=== PATIENT | female | born 1985 | race Caucasian/White ===

== ENCOUNTER → 2020-03-07 11:15 | Outpatient (CLI) | payer OTHER, SELFPAY ==
--- NOTE | 2020-03-07 | DI.RAD.S_ITS ---
PROCEDURE: XR CERVICAL SPINE 2V OR 3V INDICATIONS: Cervicalgia TECHNIQUE: 3 view(s) of the cervical spine were acquired. COMPARISON: None. FINDINGS: Bones: No fractures or dislocations to the T2 level. The lateral masses of C1 appear intact on the odontoid view. No suspicious bony lesions. Straightening of cervical lordosis which may be due to patient positioning and/or concurrent muscle spasms. Soft tissues: No prevertebral soft tissue swelling. IMPRESSION: Cervical spine without acute fracture or significant degenerative change. Mild straightening of normal cervical lordosis likely related to positioning and/or concurrent muscle spasms. Dictated by: Jett Rincon M.D. on 03/07/2020 at 17:58 Approved by: Jett Rincon M.D. on 03/07/2020 at 17:59
[2020-03-07 12:17] LABS: Erythrocyte Sedimentation Rate 2 MM/HR (0-20)
[2020-03-07 13:53] LABS: Alanine Aminotransferase 23 IU/L (<35); Albumin 4.4 g/dL (3.5-5.0); Albumin Globulin Ratio 1.6 (1.0-2.8); Alkaline Phosphatase 69 U/L (38-126); Aspartate Aminotransferase 26 IU/L (14-36); Bilirubin Total 0.3 mg/dL (0.2-1.3); Blood Urea Nitrogen 10 mg/dL (7-17); Calcium 9.3 mg/dL (8.4-10.2); Carbon Dioxide 31 mmol/L (22-32); Chloride 103 mmol/L (98-107); Estimated Glomerular Filt Rate > 60.0 mL/min (>60); Globulin 2.7 g/dL (1.7-4.1); Glucose 84 mg/dL (70-100); HEMOLYSIS < 15 (0-50); Lactate Dehydrogenase 402 U/L (313-618); Potassium 4.5 mmol/L (3.4-5.1); Sodium 137 mmol/L (137-145); Total Protein 7.1 g/dL (6.3-8.2)
== END ==
PROVIDERS: Referring Provider Internal Medicine; Visit Provider Internal Medicine
DX: M54.2 Cervicalgia (principal); M89.8X9 Other specified disorders of bone, unspecified site
CPT/HCPCS: 36415; 72040; 80053; 83615; 85651

== ENCOUNTER → 2020-06-11 13:48 | Outpatient (CLI) | payer OTHER, SELFPAY ==
[2020-06-11 15:13] LABS: COVID19 -Nasal RAPID Negative (Negative)
== END ==
PROVIDERS: Visit Provider Physician Assistant
DX: Z11.59 Encounter for screening for other viral diseases (principal)
CPT/HCPCS: 87635

== ENCOUNTER → 2021-02-27 11:41 | Outpatient (CLI) | payer OTHER, SELFPAY ==
[2021-02-27 13:04] LABS: Add Manual Diff / Slide Review NO; Basophils Absolute Auto 0 /uL (0-100); Basophils Percent Auto 0.7 % (0-2); Eosinophils Absolute Auto 0 /uL (0-450); Hematocrit 42.7 % (36-46); Hemoglobin 14.2 g/dL (12.0-16.0); Lymphocytes Absolute Auto 1000 /uL (1100-4500); Lymphocytes Percent Auto 22.7 % (25-40); Mean Corpuscular HGB Conc 33.3 % (30-36); Mean Corpuscular Hemoglobin 28.6 PG (26-34); Mean Corpuscular Volume 85.9 fL (80-100); Monocytes Absolute Auto 400 /uL (0-900); Monocytes Percent Auto 8.2 % (3-14); Neutrophils Absolute Auto 2900 /uL (1500-7000); Neutrophils Percent Auto 67.4 % (50-75); Platelet Count 167 X10^3/uL (150-400); Red Blood Cell Count 4.97 X10^6/uL (4.0-5.2); Red Cell Distribution Width 12.9 % (11.6-14.8); White Blood Cell Count 4.3 X10^3/uL (4.5-11.0)
[2021-02-27 13:34] LABS: Alanine Aminotransferase 21 IU/L (<35); Albumin 4.1 g/dL (3.5-5.0); Albumin Globulin Ratio 1.4 (1.0-2.8); Alkaline Phosphatase 79 U/L (38-126); Aspartate Aminotransferase 27 IU/L (14-36); BUN Creatinine Ratio 12.5 (6-22); Bilirubin Total 0.3 mg/dL (0.2-1.3); Blood Urea Nitrogen 9 mg/dL (7-17); Calcium 9.5 mg/dL (8.4-10.2); Carbon Dioxide 26 mmol/L (22-32); Chloride 105 mmol/L (98-107); Cholesterol 216 mg/dL (140-199); Estimated Glomerular Filt Rate > 60.0 mL/min (>60); Globulin 2.9 g/dL (1.7-4.1); Glucose 93 mg/dL (70-100); HDL Cholesterol 87 mg/dL (40-60); HEMOLYSIS < 15 (0-50); LDL Cholesterol Calculated 110 mg/dL (<100); Potassium 4.1 mmol/L (3.4-5.1); Sodium 137 mmol/L (137-145); Triglycerides 96 mg/dL (35-150)
[2021-02-27 13:51] LABS: Free T3, Triiodothyronine Free 3.74 pg/mL (2.77-5.27); Free T4, Direct Thyroxine 0.85 ng/dL (0.78-2.19)
[2021-02-27 14:05] LABS: Thyroid Stimulating Hormone 1.52 uIU/mL (0.47-4.68)
[2021-02-27 14:06] LABS: Ferritin 5 ng/mL (6-137)
[2021-02-27 14:19] LABS: Vitamin B12 364 pg/mL (239-931)
[2021-02-28 07:07] LABS: Thyroid Peroxidase Antibodies 21 IU/mL (0-34)
== END ==
PROVIDERS: PCP Naturopath; Referring Provider Naturopath; Visit Provider Naturopath
DX: Z00.00 Encounter for general adult medical examination without abnormal findings (principal); D51.3 Other dietary vitamin B12 deficiency anemia; R53.83 Other fatigue
CPT/HCPCS: 36415; 80053; 80061; 82607; 82728; 84439; 84443; 84481; 85025; 86376; 86900; 86901

== ENCOUNTER → 2021-03-10 12:02 | Outpatient (ROUT) | payer OTHER, SELFPAY ==
[2021-03-10 12:04] LABS: Bacteria Urine None Seen; RBC Urine None Seen (0-5/HPF); WBC Urine None Seen (0-5/HPF)
[2021-03-10 12:31] LABS: Appearance Urine UA CLEAR; Bilirubin Urine UA NEGATIVE (NEGATIVE); Color Urine UA YELLOW; Glucose Urine UA NEGATIVE (Negative); Ketones Urine UA NEGATIVE (NEGATIVE); Leukocyte Esterase Urine UA NEGATIVE (NEGATIVE); Nitrite Urine UA NEGATIVE (Negative); Occult Blood Urine UA NEGATIVE (Negative); Protein Urine UA NEGATIVE (Negative); Urobilinogen Urine UA 0.2 E.U./dL (0.2)
[2021-03-10 12:46] LABS: pH Urine UA 6.5 (4.5-8.0)
[2021-03-10 12:47] LABS: Calcium Oxalate Crystals Urine Few; Culture Indicated Urine Cult Not Indicated; Squamous Epithelial Cell Urine 0-1 /HPF (0-5/HPF)
== END ==
PROVIDERS: PCP Naturopath; Visit Provider Naturopath
DX: R82.90 Unspecified abnormal findings in urine (principal)
CPT/HCPCS: 81001

== ENCOUNTER 2021-05-26 14:27 | Emergency (ER) | payer OTHER, MEDICAID, SELFPAY ==
[2021-05-26 14:35] VITALS: BP 132/90; PULSE 92; RESP 16; TEMP 37.1; O2SAT 97; BMI 25.8
[2021-05-26 15:51] LABS: COVID19 -Nasal RAPID Negative (Negative)
[2021-05-26 18:29] VITALS: BP 115/75; PULSE 98; O2SAT 100
[2021-05-26 18:30] VITALS: BP 111/73; PULSE 100; O2SAT 100
--- NOTE | 2021-05-26 18:40 | ED_ITS ---
HPI - Psych General Chief Complaint: Psychiatric Symptoms Stated Complaint: Having behavorial issues and a lot of pain Time Seen by Provider: 05/26/21 18:04 Source: patient Mode of arrival: Ambulatory History of Present Illness HPI Narrative: 35-year-old woman with history of depression, ADHD, passive suicidal ideation with history of a fibromyalgia, at 1 point she was told that she had Crohn's disease however she does not believe this is she does not typically have cramping or bloody stool. She does have frequent constipation with hemorrhoidal type bleeding. When she took mesalamine for her Crohn's disease it did not influence her symptoms at all. She sees a psychiatrist 4 times urine has an appointment coming up on May 30 to talk about medications currently is on Cymbalta at 90? Strattera and dextroamphetamine. She complains of severe back rib and bone pain, describes neck and shoulder pain as well as color bones being tender. Her primary care physician currently is Georgia Faustin ND. With her chronic pain she is wondering if she may have Lyme disease. She apparently did have a therapist however with insurance changes needed to change therapist and has not been in to a new 1 or been able to find 1 that she might even possibly schedule appointment with. She states that with her depression and suicidal ideation but she does not have a plan and that she would never follow through because she has a big support network with family and when want to disappoint them. In trying to summarize her concerns it seems that her chronic pain is exacerbating her depression and passive suicidal ideation and she is frustrated with the difficulty in getting into appropriate care. Related Data Previous Rx's Medication Instructions Recorded meloxicam 7.5 mg tablet 7.5 mg PO DAILY #30 tab 05/26/21 Review of Systems Review of Systems Narrative: Markedly positive review of systems She notes difficulty with sleeping, with chronic fatigue, chronic myofascial pain, chronic bone pain, neck pain, headaches, diarrhea and constipation, hemorrhoidal bleeding, bilateral flank pain with no dysuria. She complains of joint pain, skin dryness. She notes no fevers, cough, chills, palpitations and no lower extremity edema Patient History Social History Smoking Status: Never smoker Smoking Status: Never smoker Substance Use Type: marijuana Exam Narrative Exam Narrative: General: Fatigued appearing appearing, in no acute distress. Able to give a complete and coherent history. Well-nourished well-developed HEENT: Moist mucous membranes, normal sclera with reactive pupils, Neck: No JVD, supple Respiratory: Lungs are clear to auscultation, no wheezing no rales no rhonchi. Full and symmetrical air movement, tenderness at sternoclavicular joints to palpation Cardiac: Regular rate and rhythm no murmurs no bruits Abdomen: Soft, nontender, good bowel tones, no flank pain Skin: Warm and dry, no rashes Neurologic: Grossly neurologically intact with no obvious asymmetries or abnormalities Extremities: No trauma, well perfused, no active synovitis Psych: Cooperative, flat affect but good eye contact and fluent speech pattern with appropriate thought content Initial Vital Signs Initial Vital Signs: Vital Signs Temperature 98.7 F 05/26/21 14:35 Pulse Rate 92 H 05/26/21 14:35 Respiratory Rate 16 05/26/21 14:35 Blood Pressure 132/90 05/26/21 14:35 Pulse Oximetry 97 05/26/21 14:35 Course Orders Ordered: ED Orders 05/26/21 14:45 COVID19 -Nasal swab/Pre-Proc Stat Vital Signs Vital signs: Vital Signs - 8 hr 05/26/21 14:35 05/26/21 18:29 05/26/21 18:30 Temperature 98.7 F Pulse Rate 92 H 98 H 100 H Respiratory Rate 16 Blood Pressure 132/90 115/75 111/73 Pulse Oximetry 97 100 100 MDM - Psych Lab Data Result diagrams: 05/26/21 19:18 05/26/21 19:18 Labs: Lab Results 05/26/21 05/26/21 05/26/21 Range/Units 14:45 19:18 19:18 WBC 5.0 (4.5-11.0) X10^3/uL RBC 4.63 (4.0-5.2) X10^6/uL Hgb 13.3 (12.0-16.0) g/dL Hct 39.8 (36-46) % MCV 86.0 (80-100) fL MCH 28.8 (26-34) PG MCHC 33.5 (30-36) % RDW 13.4 (11.6-14.8) % Plt Count 165 (150-400) X10^3/uL Neut % (Auto) 72.7 (50-75) % Lymph % (Auto) 19.0 L (25-40) % [place] % (Auto) 6.7 (3-14) % Eos % (Auto) 1.2 L (2-4) % Baso % (Auto) 0.4 (0-2) % Neut # (Auto) 3700 (1336-0022) /uL Lymph # (Auto) 1000 L (4135-5099) /uL [place] # (Auto) 300 (0-900) /uL Eos # (Auto) 100 (0-450) /uL Baso # (Auto) 0 (0-100) /uL ESR 2 (0-20) MM/HR Sodium 136 L (137-145) mmol/L Potassium 4.1 (3.4-5.1) mmol/L Chloride 104 (98-107) mmol/L Carbon Dioxide 26 (22-32) mmol/L BUN 9 (7-17) mg/dL Creatinine 0.71 (0.52-1.04) mg/dL Estimated GFR > 60.0 (>60) mL/min BUN/Creatinine Ratio 12.7 (6-22) Glucose 91 (70-100) mg/dL Calcium 9.3 (8.4-10.2) mg/dL Total Bilirubin 0.3 (0.2-1.3) mg/dL AST 21 (14-36) IU/L ALT 16 (<35) IU/L Alkaline Phosphatase 48 (38-126) U/L C-Reactive Protein < 0.5 (<1.0) mg/dL Total Protein 6.4 (6.3-8.2) g/dL Albumin 3.9 (3.5-5.0) g/dL Globulin 2.5 (1.7-4.1) g/dL Albumin/Globulin Ratio 1.6 (1.0-2.8) SARS-CoV-2 (PCR) Negative (Negative) MDM Narrative Medical decision making narrative: 35-year-old woman with depression and chronic pain who continues to search for alternative treatments and diagnoses. She is concerned that she has fibromyalgia and also concerned that she may have Lyme disease. She reports that she did have 2 identified ticks on her approximately 4 years ago but did not develop any classic Lyme disease rash. She is wondering if lab testing can be done. I did suggest that we can look for inflammatory issues and that seeing a mortgage protection sales would likely be absolutely appropriate however current recommendations for asymptomatic patients and those with nonspecific articular or neurologic symptoms may be incorrectly diagnosed as having chronic Lyme disease and re ceive unnecessary antibiotics. In patients with noninflammatory musculoskeletal pain, cognitive complaints, fatigue, and/or irritability, alternative diagnoses should be considered, including chronic fatigue syndrome, fibromyalgia, myofascial pain syndrome, polymyalgia rheumatica, hypothyroidism, inflammatory myopathies, and chronic traumatic encephalopathy. I suspect that her depression is the largest part of her issues. She currently is on some vault a at 90 mg and I have asked her to go up to 120 mg in anticipation of her appointment with her psychiatrist in another 4 days. Wrong encouraged her to follow-up with a therapist. Blood work today is unremarkable including normal sed rate and normal CRP. Thyroid panel was last run in February of 2021 and was also normal. Patient will follow-up with her primary care physician to talk about referral to Rheumatology and with her psychiatrist and talk about additional help in finding an active therapist. At this point she is not actively suicidal she feels hopeful with the plan that we have developed and is willing and able to go up to 120 mg of Cymbalta at this time with medications available at home. She is safe for discharge Discharge Plan Departure Patient Disposition: Home Clinical Impression: Depression, Chronic pain, Passive suicidal ideations Instructions: DI for Depression -- Adult, DI for Chronic Pain -- Adult Activity Restrictions/Additional Instructions: Thank you for coming in today Your symptoms sound very frustrating. Regarding your depression, I am going to suggest that you increase your current dose of Cymbalta from 90 mg to 120 mg. If you want to you can split this does 60 mg in the morning and 60 at night but there is no reason that you half to do this. Please make sure that you keep your appointment with your psychiatrist on the and let her know that you have increased the dose to base on my recommendations and knowing that you have this appointment coming up For your pain issues, I think increasing the Cymbalta can help. I have also sent a prescription for meloxicam which is an anti inflammatory medication to [facility] for you to try. It is a once a day medication and if it helps it is something else in the arsenal of medications available to you Making sure that you are keeping a regular sleep schedule, healthy eating habits and exercising regularly will help with all of the above I did do blood work today including markers for inflammatory issues. Please follow-up with Dr. Faustin and discuss referral to Rheumatology to see if a more definitive diagnosis might be made with your overall inflammatory issues Regarding ypur therapist, see if your psychiatrist has any suggestions and look up therapist covered by your current insurance on your insurance web site I am glad you can in today, you are not crazy, I am glad that you are not currently planning to hurt herself and would encourage you to return to the ER if you feel like you might hurt yourself. I wish you the best Prescriptions: New meloxicam 7.5 mg tablet 7.5 mg PO DAILY Qty: 30 3RF Referrals: Georgia Faustin ND [Primary Care Provider] -
[2021-05-26 19:00] VITALS: BP 112/78; PULSE 94; O2SAT 98
[2021-05-26 19:24] LABS: Add Manual Diff / Slide Review NO; Basophils Absolute Auto 0 /uL (0-100); Basophils Percent Auto 0.4 % (0-2); Eosinophils Absolute Auto 100 /uL (0-450); Eosinophils Percent Auto 1.2 % (2-4); Hematocrit 39.8 % (36-46); Hemoglobin 13.3 g/dL (12.0-16.0); Lymphocytes Absolute Auto 1000 /uL (1100-4500); Mean Corpuscular HGB Conc 33.5 % (30-36); Mean Corpuscular Hemoglobin 28.8 PG (26-34); Monocytes Absolute Auto 300 /uL (0-900); Monocytes Percent Auto 6.7 % (3-14); Neutrophils Absolute Auto 3700 /uL (1500-7000); Neutrophils Percent Auto 72.7 % (50-75); Platelet Count 165 X10^3/uL (150-400); Red Blood Cell Count 4.63 X10^6/uL (4.0-5.2); Red Cell Distribution Width 13.4 % (11.6-14.8)
[2021-05-26 19:30] VITALS: BP 115/70; PULSE 89; O2SAT 98
[2021-05-26 19:46] LABS: Alanine Aminotransferase 16 IU/L (<35); Albumin 3.9 g/dL (3.5-5.0); Albumin Globulin Ratio 1.6 (1.0-2.8); Alkaline Phosphatase 48 U/L (38-126); Aspartate Aminotransferase 21 IU/L (14-36); BUN Creatinine Ratio 12.7 (6-22); Bilirubin Total 0.3 mg/dL (0.2-1.3); Blood Urea Nitrogen 9 mg/dL (7-17); C-Reactive Protein Quant < 0.5 mg/dL (<1.0); Calcium 9.3 mg/dL (8.4-10.2); Carbon Dioxide 26 mmol/L (22-32); Chloride 104 mmol/L (98-107); Estimated Glomerular Filt Rate > 60.0 mL/min (>60); Globulin 2.5 g/dL (1.7-4.1); Glucose 91 mg/dL (70-100); HEMOLYSIS < 15 (0-50); Potassium 4.1 mmol/L (3.4-5.1); Sodium 136 mmol/L (137-145); Total Protein 6.4 g/dL (6.3-8.2)
[2021-05-26 19:47] LABS: Erythrocyte Sedimentation Rate 2 MM/HR (0-20)
== END 2021-05-26 19:41 | disposition home or self-care (01) ==
PROVIDERS: Emergency Medicine; Emergency Provider Emergency Medicine; PCP Naturopath
DX: G89.29 Other chronic pain (principal); F32.9 Major depressive disorder, single episode, unspecified; Z20.822 Contact with and (suspected) exposure to COVID-19
CPT/HCPCS: 36415; 80053; 85025; 85651; 86140; 87635; 99283; C9803

== ENCOUNTER 2021-08-30 05:42 | Emergency (ER) | payer BC, SELFPAY ==
[2021-08-30 05:57] VITALS: BP 173/104; PULSE 136; RESP 28; O2SAT 98
--- NOTE | 2021-08-30 06:01 | ED.PSYCH ---
HPI - Psych <Valerio Jimenez DO - Last Filed: 09/02/21 01:41> General Chief Complaint: Psychiatric Symptoms Stated Complaint: bot fly infection Time Seen by Provider: 08/30/21 05:46 History of Present Illness HPI Narrative: 35-year-old female nonsmoker with history of anxiety, depression, ADHD, possibly PTSD presents with a chief complaint of a pop fly infection in her legs. She states that she was in her home and noticed not 1, but multiple small flies exit her skin and she is worried that because she has plants in her home that she may have developed a pop fly infestation. She denies any pain, fever or chills. She denies any history of the same. She is very tearful and upset. She denies the use of any street drugs, alcohol or other. She states that she was here in May under relatively similar circumstances and was upset because nobody believed her but after much searching she found a doctor that would listen to her. She had extensive testing and sounds like there was lab work suggesting she may have H pylori and even a slightly elevated titer for [place] spotted fever. She has been taking probiotics to help prepare her body for the antibiotics that had been recommended. She states that she has been taking her prescribed medications as directed. She has had mental health issues in the past and does admit to occasionally having auditory hallucinations. She had been to a psychiatric facility in [facility] in the fall and sounds like had gone through a ketamine therapy session which was helpful. She denies any thoughts of wanting to hurt herself or others. She feels overwhelmed, fearful and is convinced she is going crazy. Related Data Previous Rx's Medication Instructions Recorded meloxicam 7.5 mg tablet 7.5 mg PO DAILY #30 tab 05/26/21 olanzapine 10 mg tablet (Zyprexa) 10 mg PO DAILY #30 tab 08/30/21 Review of Systems <Valerio Jimenez DO - Last Filed: 09/02/21 01:41> Review of Systems Narrative: GENERAL: Denies chills, fatigue, malaise, fever, sweats. HEENT: Denies sinus pain, ear pain, sore throat, difficulty swallowing, dizziness. RESPIRATORY: Denies dyspnea, cough, wheezing, hemoptysis, sputum. CARDIOVASCULAR: Denies chest pain, palpitations, orthopnea, edema, GASTROINTESTINAL: Denies nausea, vomiting, abdominal pain, diarrhea, constipation, melena. : Denies dysuria, frequency, incontinence, hematuria, urinary retention. MUSCULOSKELETAL: denies weakness, joint pain, or bony pain SKIN: See HPI NEUROLOGIC: Denies weakness, headache, numbness, change in speech, confusion, seizures, incoordination. PSYCHIATRIC: See HPI. 12 point review of systems is negative except for those stated above Patient History <Valerio Jimenez DO - Last Filed: 09/02/21 01:41> Social History Smoking Status: Never smoker Smoking Status: Never smoker Substance Use Type: marijuana Exam <Valerio Jimenez DO - Last Filed: 09/02/21 01:41> Narrative Exam Narrative: GENERAL: [35 year old patient appears stated age. Well-developed patient, in obvious distress, she is very tearful, fidgety, rapid pressured speech with very paranoid commentary. HEAD: Atraumatic. Normocephalic. EYES: Pupils equal round and reactive. Extraocular motions intact. No scleral icterus. No injection or drainage. ENT: Nose without bleeding, purulent drainage. Throat without erythema, tonsillar hypertrophy or exudate. Airway patent. NECK: Trachea midline. Non tender CARDIOVASCULAR: Regular rate and rhythm without murmurs, gallops, or rubs. RESPIRATORY: Clear to auscultation. Breath sounds equal bilaterally. No wheezes, rales, or rhonchi. GASTROINTESTINAL: Abdomen soft, non-tender, nondistended. EXTREMITIES: No edema or joint tenderness. BACK: Nontender without deformity or crepitance. No flank tenderness. NEURO: AOx3. SKIN: No rash or erythema of visible areas Initial Vital Signs Initial Vital Signs: Vital Signs Pulse Rate 136 H 08/30/21 05:57 Respiratory Rate 28 H 08/30/21 05:57 Blood Pressure 173/104 H 08/30/21 05:57 Pulse Oximetry 98 08/30/21 05:57 <Bret Schulte DO - Last Filed: 08/30/21 17:56> Initial Vital Signs Initial Vital Signs: Vital Signs Pulse Rate 136 H 08/30/21 05:57 Respiratory Rate 28 H 08/30/21 05:57 Blood Pressure 173/104 H 08/30/21 05:57 Pulse Oximetry 98 08/30/21 05:57 Course <Valerio Jimenez DO - Last Filed: 09/02/21 01:41> Orders Ordered: Discontinued Medications Olanzapine (Olanzapine Odt 10 Mg Tab) 10 mg PO NOW ONE Stop: 08/30/21 06:38 Last Admin: 08/30/21 06:46 Dose: 10 mg Documented by: CTRTATE Vital Signs Vital signs: Vital Signs - 8 hr 08/30/21 11:22 08/30/21 11:23 08/30/21 17:42 Pulse Rate 90 90 Respiratory Rate 18 18 Blood Pressure 103/60 103/60 108/62 Pulse Oximetry 100 99 <Bret Schulte DO - Last Filed: 08/30/21 17:56> Orders Ordered: Discontinued Medications Olanzapine (Olanzapine Odt 10 Mg Tab) 10 mg PO NOW ONE Stop: 08/30/21 06:38 Last Admin: 08/30/21 06:46 Dose: 10 mg Documented by: CTRTATE Vital Signs Vital signs: Vital Signs - 8 hr 08/30/21 11:22 08/30/21 11:23 08/30/21 17:42 Pulse Rate 90 90 Respiratory Rate 18 18 Blood Pressure 103/60 103/60 108/62 Pulse Oximetry 100 99 MDM - Psych <Valerio Jimenez, DO - Last Filed: 09/02/21 01:41> Lab Data Result diagrams: 08/30/21 06:20 08/30/21 06:20 Labs: Lab Results 08/30/21 08/30/21 08/30/21 Range/Units 06:20 06:20 06:20 WBC 5.6 (4.5-11.0) X10^3/uL RBC 4.32 (4.0-5.2) X10^6/uL Hgb 12.6 (12.0-16.0) g/dL Hct 38.0 (36-46) % MCV 88.0 (80-100) fL MCH 29.1 (26-34) PG MCHC 33.1 (30-36) % RDW 13.1 (11.6-14.8) % Plt Count 230 (150-400) X10^3/uL Neut % (Auto) 58.4 (50-75) % Lymph % (Auto) 29.1 (25-40) % [place] % (Auto) 10.9 (3-14) % Eos % (Auto) 1.0 L (2-4) % Baso % (Auto) 0.6 (0-2) % Neut # (Auto) 3300 (8975-7182) /uL Lymph # (Auto) 1600 (4314-7699) /uL [place] # (Auto) 600 (0-900) /uL Eos # (Auto) 100 (0-450) /uL Baso # (Auto) 0 (0-100) /uL Sodium 139 (137-145) mmol/L Potassium 3.9 (3.4-5.1) mmol/L Chloride 104 (98-107) mmol/L Carbon Dioxide 27 (22-32) mmol/L BUN 10 (7-17) mg/dL Creatinine 0.77 (0.52-1.04) mg/dL Estimated GFR > 60.0 (>60) mL/min BUN/Creatinine Ratio 13.0 (6-22) Glucose 111 H (70-100) mg/dL Calcium 9.9 (8.4-10.2) mg/dL Total Bilirubin 0.6 (0.2-1.3) mg/dL AST 28 (14-36) IU/L ALT 23 (<35) IU/L Alkaline Phosphatase 65 (38-126) U/L Total Protein 7.6 (6.3-8.2) g/dL Albumin 4.8 (3.5-5.0) g/dL Globulin 2.8 (1.7-4.1) g/dL Albumin/Globulin Ratio 1.7 (1.0-2.8) TSH 5.81 H (0.47-4.68) uIU/mL Free T4 1.25 (0.78-2.19) ng/dL Serum , Qual (Negative) Urine Color Urine Appearance Urine pH (4.5-8.0) Ur Specific [place] (1.000-1.035) Urine Protein (Negative) Urine Glucose (UA) (Negative) g/dL Urine Ketones (NEGATIVE) Urine Occult Blood (Negative) Urine Nitrate (Negative) Urine Bilirubin (NEGATIVE) Urine Urobilinogen (0.2) E.U./dL Ur Leukocyte Esterase (NEGATIVE) Urine RBC (0-5/HPF) Urine WBC (0-5/HPF) Ur Squamous Epith Cells (0-5/HPF) Urine Bacteria (None) Ur Culture Indicated? Urine Test (Negative) Salicylates < 1.0 (<20) mg/dL U Opiates 300ng/mL cut (Negative) Ur Oxycodone Screen (Negative) Urine Methadone Screen (Negative) Ur Barbiturates Screen (Negative) U Tricyclic Antidepress (Negative) Ur Phencyclidine Scrn (Negative) Ur Amphetamines Screen (Negative) U Methamphetamines Scrn (Negative) Ur MDMA Scrn (Ecstasy) (Negative) U Benzodiazepines Scrn (Negative) Urine Cocaine Screen (Negative) U Marijuana (THC) Screen (Negative) Ethyl Alcohol < 10 ( - 10) mg/dL SARS-CoV-2 (PCR) (Negative) 08/30/21 08/30/21 08/30/21 Range/Units 06:20 08:30 08:30 WBC (4.5-11.0) X10^3/uL RBC (4.0-5.2) X10^6/uL Hgb (12.0-16.0) g/dL Hct (36-46) % MCV (80-100) fL MCH (26-34) PG MCHC (30-36) % RDW (11.6-14.8) % Plt Count (150-400) X10^3/uL Neut % (Auto) (50-75) % Lymph % (Auto) (25-40) % [place] % (Auto) (3-14) % Eos % (Auto) (2-4) % Baso % (Auto) (0-2) % Neut # (Auto) (5621-4376) /uL Lymph # (Auto) (6755-4052) /uL [place] # (Auto) (0-900) /uL Eos # (Auto) (0-450) /uL Baso # (Auto) (0-100) /uL Sodium (137-145) mmol/L Potassium (3.4-5.1) mmol/L Chloride (98-107) mmol/L Carbon Dioxide (22-32) mmol/L BUN (7-17) mg/dL Creatinine (0.52-1.04) mg/dL Estimated GFR (>60) mL/min BUN/Creatinine Ratio (6-22) Glucose (70-100) mg/dL Calcium (8.4-10.2) mg/dL Total Bilirubin (0.2-1.3) mg/dL AST (14-36) IU/L ALT (<35) IU/L Alkaline Phosphatase (38-126) U/L Total Protein (6.3-8.2) g/dL Albumin (3.5-5.0) g/dL Globulin (1.7-4.1) g/dL Albumin/Globulin Ratio (1.0-2.8) TSH (0.47-4.68) uIU/mL Free T4 (0.78-2.19) ng/dL Serum , Qual Negative (Negative) Urine Color Urine Appearance Urine pH (4.5-8.0) Ur Specific [place] (1.000-1.035) Urine Protein (Negative) Urine Glucose (UA) (Negative) g/dL Urine Ketones (NEGATIVE) Urine Occult Blood (Negative) Urine Nitrate (Negative) Urine Bilirubin (NEGATIVE) Urine Urobilinogen (0.2) E.U./dL Ur Leukocyte Esterase (NEGATIVE) Urine RBC (0-5/HPF) Urine WBC (0-5/HPF) Ur Squamous Epith Cells (0-5/HPF) Urine Bacteria (None) Ur Culture Indicated? Urine Test Negative (Negative) Salicylates (<20) mg/dL U Opiates 300ng/mL cut Negative (Negative) Ur Oxycodone Screen Negative (Negative) Urine Methadone Screen Negative (Negative) Ur Barbiturates Screen Negative (Negative) U Tricyclic Antidepress Negative (Negative) Ur Phencyclidine Scrn Negative (Negative) Ur Amphetamines Screen Positive H (Negative) U Methamphetamines Scrn Negative (Negative) Ur MDMA Scrn (Ecstasy) Negative (Negative) U Benzodiazepines Scrn Negative (Negative) Urine Cocaine Screen Negative (Negative) U Marijuana (THC) Screen Positive H (Negative) Ethyl Alcohol ( - 10) mg/dL SARS-CoV-2 (PCR) (Negative) 08/30/21 08/30/21 Range/Units 08:30 11:20 WBC (4.5-11.0) X10^3/uL RBC (4.0-5.2) X10^6/uL Hgb (12.0-16.0) g/dL Hct (36-46) % MCV (80-100) fL MCH (26-34) PG MCHC (30-36) % RDW (11.6-14.8) % Plt Count (150-400) X10^3/uL Neut % (Auto) (50-75) % Lymph % (Auto) (25-40) % [place] % (Auto) (3-14) % Eos % (Auto) (2-4) % Baso % (Auto) (0-2) % Neut # (Auto) (2868-9627) /uL Lymph # (Auto) (6055-1617) /uL [place] # (Auto) (0-900) /uL Eos # (Auto) (0-450) /uL Baso # (Auto) (0-100) /uL Sodium (137-145) mmol/L Potassium (3.4-5.1) mmol/L Chloride (98-107) mmol/L Carbon Dioxide (22-32) mmol/L BUN (7-17) mg/dL Creatinine (0.52-1.04) mg/dL Estimated GFR (>60) mL/min BUN/Creatinine Ratio (6-22) Glucose (70-100) mg/dL Calcium (8.4-10.2) mg/dL Total Bilirubin (0.2-1.3) mg/dL AST (14-36) IU/L ALT (<35) IU/L Alkaline Phosphatase (38-126) U/L Total Protein (6.3-8.2) g/dL Albumin (3.5-5.0) g/dL Globulin (1.7-4.1) g/dL Albumin/Globulin Ratio (1.0-2.8) TSH (0.47-4.68) uIU/mL Free T4 (0.78-2.19) ng/dL Serum , Qual (Negative) Urine Color Yellow Urine Appearance Clear Urine pH 6.5 (4.5-8.0) Ur Specific [place] <=1.005 (1.000-1.035) Urine Protein Negative (Negative) Urine Glucose (UA) Negative (Negative) g/dL Urine Ketones Trace H (NEGATIVE) Urine Occult Blood Trace-intact (Negative) Urine Nitrate Negative (Negative) Urine Bilirubin Negative (NEGATIVE) Urine Urobilinogen 0.2 (0.2) E.U./dL Ur Leukocyte Esterase Trace H (NEGATIVE) Urine RBC 0-1/hpf (0-5/HPF) Urine WBC 0-1/hpf (0-5/HPF) Ur Squamous Epith Cells 5-10 /hpf H (0-5/HPF) Urine Bacteria None seen (None) Ur Culture Indicated? Cult not indicated Urine Test (Negative) Salicylates (<20) mg/dL U Opiates 300ng/mL cut (Negative) Ur Oxycodone Screen (Negative) Urine Methadone Screen (Negative) Ur Barbiturates Screen (Negative) U Tricyclic Antidepress (Negative) Ur Phencyclidine Scrn (Negative) Ur Amphetamines Screen (Negative) U Methamphetamines Scrn (Negative) Ur MDMA Scrn (Ecstasy) (Negative) U Benzodiazepines Scrn (Negative) Urine Cocaine Screen (Negative) U Marijuana (THC) Screen (Negative) Ethyl Alcohol ( - 10) mg/dL SARS-CoV-2 (PCR) Negative (Negative) <Bret Schulte, DO - Last Filed: 08/30/21 17:56> Lab Data Labs: Lab Results 08/30/21 08/30/21 08/30/21 Range/Units 06:20 06:20 06:20 WBC 5.6 (4.5-11.0) X10^3/uL RBC 4.32 (4.0-5.2) X10^6/uL Hgb 12.6 (12.0-16.0) g/dL Hct 38.0 (36-46) % MCV 88.0 (80-100) fL MCH 29.1 (26-34) PG MCHC 33.1 (30-36) % RDW 13.1 (11.6-14.8) % Plt Count 230 (150-400) X10^3/uL Neut % (Auto) 58.4 (50-75) % Lymph % (Auto) 29.1 (25-40) % [place] % (Auto) 10.9 (3-14) % Eos % (Auto) 1.0 L (2-4) % Baso % (Auto) 0.6 (0-2) % Neut # (Auto) 3300 (7161-6824) /uL Lymph # (Auto) 1600 (9426-5086) /uL [place] # (Auto) 600 (0-900) /uL Eos # (Auto) 100 (0-450) /uL Baso # (Auto) 0 (0-100) /uL Sodium 139 (137-145) mmol/L Potassium 3.9 (3.4-5.1) mmol/L Chloride 104 (98-107) mmol/L Carbon Dioxide 27 (22-32) mmol/L BUN 10 (7-17) mg/dL Creatinine 0.77 (0.52-1.04) mg/dL Estimated GFR > 60.0 (>60) mL/min BUN/Creatinine Ratio 13.0 (6-22) Glucose 111 H (70-100) mg/dL Calcium 9.9 (8.4-10.2) mg/dL Total Bilirubin 0.6 (0.2-1.3) mg/dL AST 28 (14-36) IU/L ALT 23 (<35) IU/L Alkaline Phosphatase 65 (38-126) U/L Total Protein 7.6 (6.3-8.2) g/dL Albumin 4.8 (3.5-5.0) g/dL Globulin 2.8 (1.7-4.1) g/dL Albumin/Globulin Ratio 1.7 (1.0-2.8) TSH 5.81 H (0.47-4.68) uIU/mL Free T4 1.25 (0.78-2.19) ng/dL Serum , Qual (Negative) Urine Color Urine Appearance Urine pH (4.5-8.0) Ur Specific [place] (1.000-1.035) Urine Protein (Negative) Urine Glucose (UA) (Negative) g/dL Urine Ketones (NEGATIVE) Urine Occult Blood (Negative) Urine Nitrate (Negative) Urine Bilirubin (NEGATIVE) Urine Urobilinogen (0.2) E.U./dL Ur Leukocyte Esterase (NEGATIVE) Urine RBC (0-5/HPF) Urine WBC (0-5/HPF) Ur Squamous Epith Cells (0-5/HPF) Urine Bacteria (None) Ur Culture Indicated? Urine Test (Negative) Salicylates < 1.0 (<20) mg/dL U Opiates 300ng/mL cut (Negative) Ur Oxycodone Screen (Negative) Urine Methadone Screen (Negative) Ur Barbiturates Screen (Negative) U Tricyclic Antidepress (Negative) Ur Phencyclidine Scrn (Negative) Ur Amphetamines Screen (Negative) U Methamphetamines Scrn (Negative) Ur MDMA Scrn (Ecstasy) (Negative) U Benzodiazepines Scrn (Negative) Urine Cocaine Screen (Negative) U Marijuana (THC) Screen (Negative) Ethyl Alcohol < 10 ( - 10) mg/dL SARS-CoV-2 (PCR) (Negative) 08/30/21 08/30/21 08/30/21 Range/Units 06:20 08:30 08:30 WBC (4.5-11.0) X10^3/uL RBC (4.0-5.2) X10^6/uL Hgb (12.0-16.0) g/dL Hct (36-46) % MCV (80-100) fL MCH (26-34) PG MCHC (30-36) % RDW (11.6-14.8) % Plt Count (150-400) X10^3/uL Neut % (Auto) (50-75) % Lymph % (Auto) (25-40) % [place] % (Auto) (3-14) % Eos % (Auto) (2-4) % Baso % (Auto) (0-2) % Neut # (Auto) (1002-7318) /uL Lymph # (Auto) (2735-1367) /uL [place] # (Auto) (0-900) /uL Eos # (Auto) (0-450) /uL Baso # (Auto) (0-100) /uL Sodium (137-145) mmol/L Potassium (3.4-5.1) mmol/L Chloride (98-107) mmol/L Carbon Dioxide (22-32) mmol/L BUN (7-17) mg/dL Creatinine (0.52-1.04) mg/dL Estimated GFR (>60) mL/min BUN/Creatinine Ratio (6-22) Glucose (70-100) mg/dL Calcium (8.4-10.2) mg/dL Total Bilirubin (0.2-1.3) mg/dL AST (14-36) IU/L ALT (<35) IU/L Alkaline Phosphatase (38-126) U/L Total Protein (6.3-8.2) g/dL Albumin (3.5-5.0) g/dL Globulin (1.7-4.1) g/dL Albumin/Globulin Ratio (1.0-2.8) TSH (0.47-4.68) uIU/mL Free T4 (0.78-2.19) ng/dL Serum , Qual Negative (Negative) Urine Color Urine Appearance Urine pH (4.5-8.0) Ur Specific [place] (1.000-1.035) Urine Protein (Negative) Urine Glucose (UA) (Negative) g/dL Urine Ketones (NEGATIVE) Urine Occult Blood (Negative) Urine Nitrate (Negative) Urine Bilirubin (NEGATIVE) Urine Urobilinogen (0.2) E.U./dL Ur Leukocyte Esterase (NEGATIVE) Urine RBC (0-5/HPF) Urine WBC (0-5/HPF) Ur Squamous Epith Cells (0-5/HPF) Urine Bacteria (None) Ur Culture Indicated? Urine Test Negative (Negative) Salicylates (<20) mg/dL U Opiates 300ng/mL cut Negative (Negative) Ur Oxycodone Screen Negative (Negative) Urine Methadone Screen Negative (Negative) Ur Barbiturates Screen Negative (Negative) U Tricyclic Antidepress Negative (Negative) Ur Phencyclidine Scrn Negative (Negative) Ur Amphetamines Screen Positive H (Negative) U Methamphetamines Scrn Negative (Negative) Ur MDMA Scrn (Ecstasy) Negative (Negative) U Benzodiazepines Scrn Negative (Negative) Urine Cocaine Screen Negative (Negative) U Marijuana (THC) Screen Positive H (Negative) Ethyl Alcohol ( - 10) mg/dL SARS-CoV-2 (PCR) (Negative) 08/30/21 08/30/21 Range/Units 08:30 11:20 WBC (4.5-11.0) X10^3/uL RBC (4.0-5.2) X10^6/uL Hgb (12.0-16.0) g/dL Hct (36-46) % MCV (80-100) fL MCH (26-34) PG MCHC (30-36) % RDW (11.6-14.8) % Plt Count (150-400) X10^3/uL Neut % (Auto) (50-75) % Lymph % (Auto) (25-40) % [place] % (Auto) (3-14) % Eos % (Auto) (2-4) % Baso % (Auto) (0-2) % Neut # (Auto) (4726-7510) /uL Lymph # (Auto) (1582-5748) /uL [place] # (Auto) (0-900) /uL Eos # (Auto) (0-450) /uL Baso # (Auto) (0-100) /uL Sodium (137-145) mmol/L Potassium (3.4-5.1) mmol/L Chloride (98-107) mmol/L Carbon Dioxide (22-32) mmol/L BUN (7-17) mg/dL Creatinine (0.52-1.04) mg/dL Estimated GFR (>60) mL/min BUN/Creatinine Ratio (6-22) Glucose (70-100) mg/dL Calcium (8.4-10.2) mg/dL Total Bilirubin (0.2-1.3) mg/dL AST (14-36) IU/L ALT (<35) IU/L Alkaline Phosphatase (38-126) U/L Total Protein (6.3-8.2) g/dL Albumin (3.5-5.0) g/dL Globulin (1.7-4.1) g/dL Albumin/Globulin Ratio (1.0-2.8) TSH (0.47-4.68) uIU/mL Free T4 (0.78-2.19) ng/dL Serum , Qual (Negative) Urine Color Yellow Urine Appearance Clear Urine pH 6.5 (4.5-8.0) Ur Specific [place] <=1.005 (1.000-1.035) Urine Protein Negative (Negative) Urine Glucose (UA) Negative (Negative) g/dL Urine Ketones Trace H (NEGATIVE) Urine Occult Blood Trace-intact (Negative) Urine Nitrate Negative (Negative) Urine Bilirubin Negative (NEGATIVE) Urine Urobilinogen 0.2 (0.2) E.U./dL Ur Leukocyte Esterase Trace H (NEGATIVE) Urine RBC 0-1/hpf (0-5/HPF) Urine WBC 0-1/hpf (0-5/HPF) Ur Squamous Epith Cells 5-10 /hpf H (0-5/HPF) Urine Bacteria None seen (None) Ur Culture Indicated? Cult not indicated Urine Test (Negative) Salicylates (<20) mg/dL U Opiates 300ng/mL cut (Negative) Ur Oxycodone Screen (Negative) Urine Methadone Screen (Negative) Ur Barbiturates Screen (Negative) U Tricyclic Antidepress (Negative) Ur Phencyclidine Scrn (Negative) Ur Amphetamines Screen (Negative) U Methamphetamines Scrn (Negative) Ur MDMA Scrn (Ecstasy) (Negative) U Benzodiazepines Scrn (Negative) Urine Cocaine Screen (Negative) U Marijuana (THC) Screen (Negative) Ethyl Alcohol ( - 10) mg/dL SARS-CoV-2 (PCR) Negative (Negative) MDM Narrative Medical decision making narrative: Dr schulte: Did receive turned over. Reviewed patient's workup up to this point. Medically cleared. Did receive Zyprexa prior to my evaluation. Patient spent the day here in the ER. Slept here in the ER. Was evaluated by social Work. Patient not suicidal. Not homicidal. She states she does feel much better. She is asking for prescription of the Zyprexa. Social work will continue to follow with the patient to help establish a primary doctor I will also contact her psychiatrist. Patient like to be discharged home. She was given return precautions. She expressed understanding and agreement. Discharge Plan Departure Patient Disposition: Home Clinical Impression: Acute psychosis Instructions: DI for Psychosis Activity Restrictions/Additional Instructions: I do recommend that you continue to take all of your medications as directed. You did talk with social Work today and they will continue to follow-up to try to establish a primary doctor and also she will try to make contact with your psychiatrist. It is important that you also follow-up with this. You can contact the call center here at the hospital at [phone]. Return to the emergency department for any new or worsening symptoms. Prescriptions: New olanzapine [Zyprexa] 10 mg tablet 10 mg PO DAILY Qty: 30 0RF No Action meloxicam 7.5 mg tablet 7.5 mg PO DAILY Qty: 30 3RF Referrals: Georgia Faustin ND [Primary Care Provider] - Stand Alone Forms: Naloxone Standing Order ABIEL
--- NOTE | 2021-08-30 06:11 | PC.NURSE ---
pt reports that she belives that her symptoms are from her getting [place] spotted tick fever. 3 years ago when i was bit by a tick, but my symptoms started before then she continues to state that i just had some lab work done and you can see my results
[2021-08-30 06:30] LABS: Add Manual Diff / Slide Review NO; Basophils Absolute Auto 0 /uL (0-100); Basophils Percent Auto 0.6 % (0-2); Eosinophils Absolute Auto 100 /uL (0-450); Hemoglobin 12.6 g/dL (12.0-16.0); Lymphocytes Absolute Auto 1600 /uL (1100-4500); Lymphocytes Percent Auto 29.1 % (25-40); Mean Corpuscular HGB Conc 33.1 % (30-36); Mean Corpuscular Hemoglobin 29.1 PG (26-34); Monocytes Absolute Auto 600 /uL (0-900); Monocytes Percent Auto 10.9 % (3-14); Neutrophils Absolute Auto 3300 /uL (1500-7000); Neutrophils Percent Auto 58.4 % (50-75); Platelet Count 230 X10^3/uL (150-400); Red Blood Cell Count 4.32 X10^6/uL (4.0-5.2); Red Cell Distribution Width 13.1 % (11.6-14.8); White Blood Cell Count 5.6 X10^3/uL (4.5-11.0)
[2021-08-30 06:41] LABS: Alanine Aminotransferase 23 IU/L (<35); Albumin 4.8 g/dL (3.5-5.0); Albumin Globulin Ratio 1.7 (1.0-2.8); Alkaline Phosphatase 65 U/L (38-126); Aspartate Aminotransferase 28 IU/L (14-36); Bilirubin Total 0.6 mg/dL (0.2-1.3); Blood Urea Nitrogen 10 mg/dL (7-17); Calcium 9.9 mg/dL (8.4-10.2); Carbon Dioxide 27 mmol/L (22-32); Chloride 104 mmol/L (98-107); Estimated Glomerular Filt Rate > 60.0 mL/min (>60); Ethanol (ETOH) < 10 mg/dL; Globulin 2.8 g/dL (1.7-4.1); Glucose 111 mg/dL (70-100); HEMOLYSIS < 15 (0-50); Potassium 3.9 mmol/L (3.4-5.1); Salicylate < 1.0 mg/dL (<20); Sodium 139 mmol/L (137-145); Total Protein 7.6 g/dL (6.3-8.2)
[2021-08-30 06:43] LABS: Pregnancy Test Serum,Qual Negative (Negative)
[2021-08-30] MEDS: OLANZapine ODT 10 MG TAB PO (06:46)
[2021-08-30 07:17] LABS: TSH w/ Reflex to FT4 5.81 uIU/mL (0.47-4.68)
[2021-08-30 07:55] VITALS: BP 112/63; PULSE 98; RESP 20; O2SAT 97
[2021-08-30 07:57] LABS: Free T4, Direct Thyroxine 1.25 ng/dL (0.78-2.19)
--- NOTE | 2021-08-30 10:36 | PC.NURSE ---
Patient moving independently. Barely opens eyes, not responding to staff when offering breakfast.
[2021-08-30 11:01] LABS: Appearance Urine UA CLEAR; Bilirubin Urine UA NEGATIVE (NEGATIVE); Color Urine UA YELLOW; Glucose Urine UA NEGATIVE (Negative); Ketones Urine UA TRACE (NEGATIVE); Leukocyte Esterase Urine UA TRACE (NEGATIVE); Nitrite Urine UA NEGATIVE (Negative); Occult Blood Urine UA TRACE-INTACT (Negative); Protein Urine UA NEGATIVE (Negative); Specific Gravity Urine UA <=1.005 (1.000-1.035); Urobilinogen Urine UA 0.2 E.U./dL (0.2)
[2021-08-30 11:04] LABS: pH Urine UA 6.5 (4.5-8.0)
[2021-08-30 11:05] LABS: Pregnancy Test Urine Negative (Negative)
[2021-08-30 11:09] LABS: Ur Creatinine Normal (Normal); Ur Specific Gravity Normal (Normal); Urine Cocaine Negative (Negative); Urine Tetrahydrocannabinol Positive (Negative); Urine pH Normal (Normal)
[2021-08-30 11:10] LABS: UR Morphine/Opiate cutoff 300 Negative (Negative); Urine Amphetamines Positive (Negative); Urine Barbiturates Negative (Negative); Urine Benzodiazepines Negative (Negative); Urine MDMA Negative (Negative); Urine Methadone Negative (Negative); Urine Methamphetamines Negative (Negative); Urine Oxycodone Negative (Negative); Urine Phencyclidine Negative (Negative); Urine Tricyclic Antidepressant Negative (Negative)
[2021-08-30 11:11] LABS: Bacteria Urine None Seen; Culture Indicated Urine Cult Not Indicated; RBC Urine 0-1/HPF (0-5/HPF); Squamous Epithelial Cell Urine 5-10 /HPF (0-5/HPF); WBC Urine 0-1/HPF (0-5/HPF)
[2021-08-30 11:22] VITALS: BP 103/60; PULSE 90; RESP 18; O2SAT 100
[2021-08-30 11:23] VITALS: BP 103/60
[2021-08-30 11:52] LABS: COVID19 -Nasal RAPID Negative (Negative)
[2021-08-30 17:42] VITALS: BP 108/62; PULSE 90; RESP 18; O2SAT 99
--- NOTE | 2021-08-30 19:51 | CM.SWNOTE ---
USED EQUIPMENT SALES REPRESENTATIVE Assessment USED EQUIPMENT SALES REPRESENTATIVE - [employer] Assessment USED EQUIPMENT SALES REPRESENTATIVE/[employer] Assessment Time Spent with Patient Start date 08/30/21 Visit Start Time 17:00 End date 08/30/21 Visit End Time 17:25 Total time Care Management spent on 25 min patient visit-in minutes Mental Health Screening Include Onset, Duration, Intensity Presenting Problem Patient arrives to ED via POV presenting with anxiety and concern for botfly in my skin . Patient endorses concern for being treated for specific dx such as hpylori, lyme disease and canditia. Upon USED EQUIPMENT SALES REPRESENTATIVE entering the room initially at 1220, patient presents as drowsy due to previously administered medication. USED EQUIPMENT SALES REPRESENTATIVE offers to return after patient gets more rest. When USED EQUIPMENT SALES REPRESENTATIVE enters room at 1700, patient presents as calm and communicative and states the pill helped with my thoughts. Patient endorses concern for worrying for her safety, and concern for dirt showing up on my skin upon bathing self. Patient endorses auditory hallucinations. Precipitating Event(s) Patient states that she has not been sleeping well and she has issues trusting people. Patient Strengths Patient endorses she has a psychiatrist, is seeking a therapist and currently feels safe. Current Behavioral Health Provider(s) Patient endorses she sees Include Facility, Provider, Ph. # Psychiatric nurse SU Kim (Ph. # ) every three months. Patient provides consent for USED EQUIPMENT SALES REPRESENTATIVE to call provider and inform them about patient's encounter to the ED. Psych. Hx Mental Health and Chemical Patient endorses hx of Dependency Depression, Anxiety and PTSD. Patient endorses she received Ketamine tx in June, and August at Ketamine clinic. Patient endorses THC use when stressed but states she does not like the feeling. Patient endorses she has an rx for Dextroamphetamine and Antidepressents. Patient denies any other substance use. Family Hx of Behavioral Abuse No specific hx reported, but patient endorses PTSD and reverting back to childlike behavior and mindset when stressed. Psychiatric Hospitalizations (date(s)/ None reported location) Psychosocial information & Support Patient is 35 y/o female who Systems resides in [place]. Patient endorses her partner sister and brother as supports . Patient endorses that she calls her brother and sister daily. School/Work None reported Legal Concerns Legal Matters - Outstanding Issues None reported Mental Status Orientation (Person/Place/Time) A/Ox3 Stated Mood better Affect (Congruent with Mood?) euthymic, full range, congruent with mood, stable during assessment Thought Content - Specify/Describe Patient endorsees hearing Obsessions, Delusions, Hallucinations child like voices tell her am I being polite, nice and kind? Patient stats that when she feels unsafe, when she is yelled at or in any stressful situation she reverts back to kid like mentality. Thought Processes (Kcmagtv-Napxgfzx-Brrs circumstantial Msjcyyyl-Uoxxzvil-Vgpdcmfrrh- Ngiqiphlgmyhcg-Ewdmgak-Dlhfappgygzf- Thought Blocking) Speech (Atkaye-Hhon-Wnmrewk-Rapid-Soft- normal, soft Loud-Pressured) Motor (Puptoj-Uarnrvpve-Bopz-Other) normal, not formally assessed Insight (Zypk-Bzfu-Xgee/Limited) fair/limited Judgement (Ojiu-Flon-Dhvw/Limited) fair Impulse Control (Adequate-Impaired) adequate during assessment Memory (Mbijlefag-Igxcbk-Qrphzx, intact, not formally assessed Impaired-Intact) Concentration (Intact-Impaired) intact Attention (Intact-Impaired) intact Behavior (Appropriate-Inappropriate) appropriate Additional Comment Patient is calm and communicative during assessment. Risk Assessment Suicidal Ideation (Plan) No Homicidal Ideation (Plan) No Intervention Intervention USED EQUIPMENT SALES REPRESENTATIVE enters room to meet with patient. Patient endorses that the medication she was given allowed her to rest well. Patient endorses concern to new person entering the room and USED EQUIPMENT SALES REPRESENTATIVE formally introduces self. Patient endorses her concern for boundaries. Patient endorses that she has a psychiatrist and is looking for a new therapist and has been searching on her insurance website and [employer]. Patient endorses she knows about crisis contacts but does not want to seek help from strangers. Patient endorses she feels safe to d/c from the hospital but endorses concern about being able to sleep. Patient states she has Psychiatry appt next month and provides consent for USED EQUIPMENT SALES REPRESENTATIVE to contact provider. Patient denies current hallucinations, and denies HI and SI. Patient states she is in need of PCP, USED EQUIPMENT SALES REPRESENTATIVE states that USED EQUIPMENT SALES REPRESENTATIVE can f/u with seeking PCP for patient on Saturday and provide f/u call to patient. It is the opinion of this USED EQUIPMENT SALES REPRESENTATIVE that patient is safe to d/c to home. USED EQUIPMENT SALES REPRESENTATIVE reviews the above with ED provider Dr. Schulte who indicates agreement and understanding. Plan RA Plan Patient to d/c to home with partner, USED EQUIPMENT SALES REPRESENTATIVE to f/u on Saturday with assistance in establishing care with PCP and f/u. Patient to f/u with Psychiatric Nurse. Lucero Gallo MSW
--- NOTE | 2021-09-01 15:24 | CM.SWNOTE ---
CLAIMS ASSISTANT f/u Note CLAIMS ASSISTANT searches patient's insurance website to search for PCP providers that are accepting new patients. Patient endorses preference for female D.O. CLAIMS ASSISTANT calls [facility] and it is reported that there is at least 1 DO female provider that is accepting patients. CLAIMS ASSISTANT schedules appt for patient with PCP Dr. Jackie Malcolm DO (Ph. # [phone]) for September 12, 2021 at 8:45 AM. CLAIMS ASSISTANT calls patient and provides this information and she indicates agreement and understanding. Patient presents as calm and communicative on the phone. MICHELLE Jean
== END 2021-08-30 17:58 | disposition home or self-care (01) ==
PROVIDERS: Emergency Medicine; Emergency Provider Emergency Medicine; PCP Naturopath
DX: F23 Brief psychotic disorder (principal); Z20.822 Contact with and (suspected) exposure to COVID-19
CPT/HCPCS: 80053; 80305; 80320; 80329; 81001; 81025; 84439; 84443; 84703; 85025; 87635; 99283; 99284; C9803; G0480

== ENCOUNTER 2021-09-26 23:14 | Emergency (ER) | payer BC, SELFPAY ==
[2021-09-26 23:15] VITALS: BP 123/92; PULSE 115; RESP 18; TEMP 36.7; O2SAT 100; BMI 25.8
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
[2021-09-27 00:39] LABS: Add Manual Diff / Slide Review NO; Basophils Absolute Auto 0 /uL (0-100); Basophils Percent Auto 0.8 % (0-2); Eosinophils Absolute Auto 0 /uL (0-450); Eosinophils Percent Auto 0.4 % (2-4); Hematocrit 35.9 % (36-46); Hemoglobin 12.3 g/dL (12.0-16.0); Lymphocytes Absolute Auto 1500 /uL (1100-4500); Lymphocytes Percent Auto 27.5 % (25-40); Mean Corpuscular HGB Conc 34.3 % (30-36); Mean Corpuscular Hemoglobin 29.9 PG (26-34); Mean Corpuscular Volume 87.3 fL (80-100); Monocytes Absolute Auto 400 /uL (0-900); Monocytes Percent Auto 6.8 % (3-14); Neutrophils Absolute Auto 3500 /uL (1500-7000); Neutrophils Percent Auto 64.5 % (50-75); Platelet Count 216 X10^3/uL (150-400); Red Blood Cell Count 4.11 X10^6/uL (4.0-5.2); Red Cell Distribution Width 12.4 % (11.6-14.8); White Blood Cell Count 5.5 X10^3/uL (4.5-11.0)
[2021-09-27 00:54] LABS: Alanine Aminotransferase 28 IU/L (<35); Albumin 4.5 g/dL (3.5-5.0); Albumin Globulin Ratio 1.8 (1.0-2.8); Alkaline Phosphatase 69 U/L (38-126); Aspartate Aminotransferase 30 IU/L (14-36); Bilirubin Total 0.3 mg/dL (0.2-1.3); Blood Urea Nitrogen 10 mg/dL (7-17); Calcium 9.6 mg/dL (8.4-10.2); Carbon Dioxide 26 mmol/L (22-32); Chloride 105 mmol/L (98-107); Estimated Glomerular Filt Rate > 60.0 mL/min (>60); Ethanol (ETOH) < 10 mg/dL; Globulin 2.5 g/dL (1.7-4.1); Glucose 91 mg/dL (70-100); HEMOLYSIS < 15 (0-50); Potassium 4.2 mmol/L (3.4-5.1); Sodium 138 mmol/L (137-145)
[2021-09-27 01:24] LABS: TSH w/ Reflex to FT4 1.35 uIU/mL (0.47-4.68)
[2021-09-27 01:37] LABS: UR Morphine/Opiate cutoff 300 Negative (Negative); Ur Creatinine Normal (Normal); Ur Specific Gravity Normal (Normal); Urine Amphetamines Positive (Negative); Urine Barbiturates Negative (Negative); Urine Benzodiazepines Negative (Negative); Urine Cocaine Negative (Negative); Urine MDMA Negative (Negative); Urine Methadone Negative (Negative); Urine Methamphetamines Negative (Negative); Urine Oxycodone Negative (Negative); Urine Phencyclidine Negative (Negative); Urine Tetrahydrocannabinol Positive (Negative); Urine Tricyclic Antidepressant Negative (Negative); Urine pH Normal (Normal)
== END 2021-09-27 03:35 | disposition home or self-care (01) ==
PROVIDERS: Emergency Provider Emergency Medicine; PCP Naturopath
DX: Z03.89 Encounter for observation for other suspected diseases and conditions ruled out (principal)
CPT/HCPCS: 36415; 80053; 80305; 80320; 81003; 81025; 84443; 85025; 99283; 99284

== ENCOUNTER 2021-09-28 12:29 | Emergency (ER) | payer OTHER, SELFPAY ==
[2021-09-28 12:34] VITALS: BP 135/87; PULSE 103; RESP 19; O2SAT 96; BMI 23.5
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
--- NOTE | 2021-09-28 13:45 | PC.NURSE ---
In bathroom with patient at patient request. Pt attempting to give urine sample.
[2021-09-28] MEDS: OLANZapine ODT 10 MG TAB PO ×2 (14:06→14:56)
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
--- NOTE | 2021-09-28 14:42 | PC.NURSE ---
pt took zyprexa and drinking water.
--- NOTE | 2021-09-28 14:43 | PC.NURSE ---
Pts boyfriend here in room speaking with pt
--- NOTE | 2021-09-28 14:44 | PC.NURSE ---
[facility]
[2021-09-28 14:52] LABS: Add Manual Diff / Slide Review NO; Basophils Absolute Auto 100 /uL (0-100); Basophils Percent Auto 0.9 % (0-2); Eosinophils Absolute Auto 100 /uL (0-450); Eosinophils Percent Auto 1.7 % (2-4); Hematocrit 41.5 % (36-46); Hemoglobin 13.8 g/dL (12.0-16.0); Lymphocytes Absolute Auto 1200 /uL (1100-4500); Lymphocytes Percent Auto 21.9 % (25-40); Mean Corpuscular HGB Conc 33.3 % (30-36); Mean Corpuscular Hemoglobin 29.6 PG (26-34); Mean Corpuscular Volume 88.8 fL (80-100); Monocytes Absolute Auto 500 /uL (0-900); Monocytes Percent Auto 9.9 % (3-14); Neutrophils Absolute Auto 3500 /uL (1500-7000); Neutrophils Percent Auto 65.6 % (50-75); Platelet Count 221 X10^3/uL (150-400); Red Blood Cell Count 4.67 X10^6/uL (4.0-5.2); Red Cell Distribution Width 12.5 % (11.6-14.8); White Blood Cell Count 5.3 X10^3/uL (4.5-11.0)
--- NOTE | 2021-09-28 14:52 | PC.NURSE ---
RN is in the room with the patient right now. Pt requested more medication and water
--- NOTE | 2021-09-28 15:01 | PC.NURSE ---
RN is in room with patient
[2021-09-28 15:08] LABS: Alanine Aminotransferase 26 IU/L (<35); Albumin 4.8 g/dL (3.5-5.0); Albumin Globulin Ratio 1.8 (1.0-2.8); Alkaline Phosphatase 66 U/L (38-126); Aspartate Aminotransferase 30 IU/L (14-36); BUN Creatinine Ratio 6.9 (6-22); Bilirubin Total 0.7 mg/dL (0.2-1.3); Blood Urea Nitrogen 6 mg/dL (7-17); Calcium 9.9 mg/dL (8.4-10.2); Carbon Dioxide 26 mmol/L (22-32); Chloride 103 mmol/L (98-107); Estimated Glomerular Filt Rate > 60.0 mL/min (>60); Ethanol (ETOH) < 10 mg/dL; Globulin 2.7 g/dL (1.7-4.1); Glucose 102 mg/dL (70-100); HEMOLYSIS < 15 (0-50); Potassium 3.9 mmol/L (3.4-5.1); Sodium 139 mmol/L (137-145); Total Protein 7.5 g/dL (6.3-8.2)
--- NOTE | 2021-09-28 15:11 | PC.NURSE ---
Pt took zyprexa,
--- NOTE | 2021-09-28 15:27 | PC.NURSE ---
Pt moved to room 10,pt sitting down on bed,much more calm at this time. Lucy sitting at doorway.
[2021-09-28 15:28] LABS: COVID19 -Nasal RAPID Negative (Negative)
[2021-09-28 15:43] LABS: Thyroid Stimulating Hormone 1.98 uIU/mL (0.47-4.68)
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
[2021-09-28 16:25] LABS: HCG Quantitative /Beta subunit < 2.4 mIU/mL
--- NOTE | 2021-09-28 17:50 | PC.NURSE ---
Patient is sitting in her bed talking on the ER cordless phone her her wwuwzww-xe-upp, Austyn. She is calm at this time.
--- NOTE | 2021-09-28 18:05 | PC.NURSE ---
patient is laying on her bed and talking on the ER phone to her ihfloor-wl-yux, Austyn.
--- NOTE | 2021-09-28 18:29 | PC.NURSE ---
Pt. ambulated to restroom with ALEKSANDRA Ayala, urine sample provided. Pt. back in room, laying on bed quietly.
[2021-09-28 18:33] LABS: Appearance Urine UA CLEAR; Bilirubin Urine UA NEGATIVE (NEGATIVE); Color Urine UA YELLOW; Glucose Urine UA NEGATIVE (Negative); Ketones Urine UA NEGATIVE (NEGATIVE); Leukocyte Esterase Urine UA 1+ (NEGATIVE); Nitrite Urine UA NEGATIVE (Negative); Occult Blood Urine UA NEGATIVE (Negative); Protein Urine UA NEGATIVE (Negative); Urobilinogen Urine UA 0.2 E.U./dL (0.2)
[2021-09-28 18:39] LABS: UR Morphine/Opiate cutoff 300 Negative (Negative); Ur Creatinine Normal (Normal); Ur Specific Gravity Normal (Normal); Urine Amphetamines Negative (Negative); Urine Barbiturates Negative (Negative); Urine Benzodiazepines Negative (Negative); Urine Cocaine Negative (Negative); Urine MDMA Negative (Negative); Urine Methadone Negative (Negative); Urine Methamphetamines Negative (Negative); Urine Oxycodone Negative (Negative); Urine Phencyclidine Negative (Negative); Urine Tetrahydrocannabinol Positive (Negative); Urine Tricyclic Antidepressant Negative (Negative); Urine pH Normal (Normal)
[2021-09-28 18:42] LABS: Bacteria Urine Occasional (0-1); RBC Urine None Seen (0-5/HPF); Squamous Epithelial Cell Urine 1-5 /HPF (0-5/HPF); WBC Urine 1-5/HPF (0-5/HPF)
[2021-09-28 18:43] LABS: Culture Indicated Urine Specimen Cultured
--- NOTE | 2021-09-28 20:18 | CM.SWNOTE ---
PROCESS MACHINE OPERATOR Note PROCESS MACHINE OPERATOR dispatches DCR when patient is medically clear. DCR Neftali is assigned, Neftali requests current tox screen and written attestation from patient's s/o. PROCESS MACHINE OPERATOR calls s/o who returns to ED to fill out form. Patient eventually provides urine sample. Patient meets with DCR and DCR to seek AUTUMN bed for patient. Plan: DCR to seek AUTUMN bed for patient. MICHELLE Jean
--- NOTE | 2021-09-28 21:02 | PC.NURSE ---
Pt laying on stomach with eyes closed, breathing even and unlabored.
--- NOTE | 2021-09-28 21:50 | PC.NURSE ---
PT. Sleeping soundly.
--- NOTE | 2021-09-28 23:24 | PC.NURSE ---
Pt laying on left side with eyes closed, breathing even and unlabored.
--- NOTE | 2021-09-29 00:12 | PC.NURSE ---
Dayanara [facility] given report on pt. DCR called and pt to go to [facility] after paperwork is served to pt.
[2021-09-29 00:15] VITALS: BP 107/65; PULSE 81; RESP 16; TEMP 36.1; O2SAT 100
--- NOTE | 2021-09-29 00:44 | PC.NURSE ---
Detainment papers reviewed with pt by Neftali NAGY over the phone. Pt agreeable to transfer and had no questions. Paperwork placed in her personal bag.
[2021-09-29 01:24] VITALS: BP 113/68; PULSE 78; RESP 16; TEMP 36.6; O2SAT 100
== END 2021-09-29 01:44 ==
PROVIDERS: Emergency Provider Nurse Practitioner Critical Care Medicine; PCP Naturopath
DX: F23 Brief psychotic disorder (principal); F15.90 Other stimulant use, unspecified, uncomplicated; Z20.822 Contact with and (suspected) exposure to COVID-19
CPT/HCPCS: 36415; 80053; 80305; 80320; 81001; 84443; 84702; 85025; 87086; 87635; 99284; C9803

== ENCOUNTER → 2022-04-07 12:37 | Outpatient (CLI) | payer OTHER, MEDICAID, SELFPAY ==
[2022-04-07 13:42] LABS: Add Manual Diff / Slide Review NO; Basophils Absolute Auto 0 /uL (0-100); Basophils Percent Auto 1.1 % (0-2); Eosinophils Absolute Auto 0 /uL (0-450); Eosinophils Percent Auto 1.7 % (2-4); Hemoglobin 12.2 g/dL (12.0-16.0); Lymphocytes Absolute Auto 800 /uL (1100-4500); Lymphocytes Percent Auto 32.2 % (25-40); Mean Corpuscular HGB Conc 32.3 % (30-36); Mean Corpuscular Hemoglobin 26.6 PG (26-34); Mean Corpuscular Volume 82.4 fL (80-100); Monocytes Absolute Auto 200 /uL (0-900); Monocytes Percent Auto 8.6 % (3-14); Neutrophils Absolute Auto 1500 /uL (1500-7000); Neutrophils Percent Auto 56.4 % (50-75); Platelet Count 189 X10^3/uL (150-400); Red Blood Cell Count 4.61 X10^6/uL (4.0-5.2); Red Cell Distribution Width 15.6 % (11.6-14.8); White Blood Cell Count 2.6 X10^3/uL (4.5-11.0)
[2022-04-07 14:14] LABS: Erythrocyte Sedimentation Rate 3 MM/HR (0-20)
[2022-04-07 14:50] LABS: Alanine Aminotransferase 11 IU/L (<35); Albumin 4.1 g/dL (3.5-5.0); Albumin Globulin Ratio 1.5 (1.0-2.8); Alkaline Phosphatase 50 U/L (38-126); Aspartate Aminotransferase 18 IU/L (14-36); BUN Creatinine Ratio 8.2 (6-22); Bilirubin Total 0.3 mg/dL (0.2-1.3); Blood Urea Nitrogen 7 mg/dL (7-17); Calcium 9.3 mg/dL (8.4-10.2); Carbon Dioxide 30 mmol/L (22-32); Chloride 103 mmol/L (98-107); Cholesterol 184 mg/dL (140-199); Estimated Glomerular Filt Rate > 60 mL/min (>60); Globulin 2.7 g/dL (1.7-4.1); Glucose 94 mg/dL (70-100); HDL Cholesterol 63 mg/dL (40-60); HEMOLYSIS < 15 (0-50); LDL Cholesterol Calculated 106 mg/dL (<100); Potassium 4.5 mmol/L (3.4-5.1); Sodium 141 mmol/L (137-145); Total Protein 6.8 g/dL (6.3-8.2); Triglycerides 77 mg/dL (35-150)
[2022-04-07 15:05] LABS: Free T3, Triiodothyronine Free 3.68 pg/mL (2.77-5.27); Free T4, Direct Thyroxine 0.94 ng/dL (0.78-2.19); T4 Total Thyroxine 6.23 ug/dL (5.5-11.0)
[2022-04-07 15:11] LABS: Vitamin D 25 Hydroxy (D3) 49.5 ng/mL (30.0-100.0)
[2022-04-07 15:53] LABS: Folate 9.4 ng/mL (2.76-20.0); Vitamin B12 363 pg/mL (239-931)
== END ==
PROVIDERS: Referring Provider Counselor Mental Health; Visit Provider Counselor Mental Health
DX: F32.9 Major depressive disorder, single episode, unspecified (principal); F43.10 Post-traumatic stress disorder, unspecified; F31.5 Bipolar disorder, current episode depressed, severe, with psychotic features; F44.9 Dissociative and conversion disorder, unspecified; F90.0 Attention-deficit hyperactivity disorder, predominantly inattentive type
CPT/HCPCS: 36415; 80053; 80061; 82306; 82607; 82746; 83735; 84436; 84439; 84481; 85025; 85651

== ENCOUNTER → 2022-09-08 11:58 | Outpatient (CLI) | payer OTHER, MEDICAID, SELFPAY ==
[2022-09-08 12:45] LABS: Add Manual Diff / Slide Review NO; Basophils Absolute Auto 0 /uL (0-100); Basophils Percent Auto 0.6 % (0-2); Eosinophils Absolute Auto 100 /uL (0-450); Eosinophils Percent Auto 1.4 % (2-4); Hematocrit 39.3 % (36-46); Hemoglobin 12.9 g/dL (12.0-16.0); Lymphocytes Absolute Auto 1100 /uL (1100-4500); Lymphocytes Percent Auto 22.5 % (25-40); Mean Corpuscular HGB Conc 32.8 % (30-36); Mean Corpuscular Hemoglobin 28.1 PG (26-34); Mean Corpuscular Volume 85.8 fL (80-100); Monocytes Absolute Auto 400 /uL (0-900); Monocytes Percent Auto 9.1 % (3-14); Neutrophils Absolute Auto 3200 /uL (1500-7000); Neutrophils Percent Auto 66.4 % (50-75); Platelet Count 176 X10^3/uL (150-400); Red Blood Cell Count 4.58 X10^6/uL (4.0-5.2); Red Cell Distribution Width 13.9 % (11.6-14.8); White Blood Cell Count 4.8 X10^3/uL (4.5-11.0)
[2022-09-08 13:05] LABS: HEMOLYSIS < 15 (0-50); Iron 35 ug/dL (37-170)
[2022-09-08 13:16] LABS: Percent Iron Saturation 10 % (15-50); Total Iron Binding Capacity 350 ug/dL (265-497); Transferrin 252 mg/dL (206-381)
[2022-09-08 13:53] LABS: Alanine Aminotransferase 17 IU/L (<35); Albumin 4.3 g/dL (3.5-5.0); Albumin Globulin Ratio 1.6 (1.0-2.8); Alkaline Phosphatase 60 U/L (38-126); Aspartate Aminotransferase 24 IU/L (14-36); BUN Creatinine Ratio 10.3 (6-22); Bilirubin Total 0.2 mg/dL (0.2-1.3); Blood Urea Nitrogen 8 mg/dL (7-17); Carbon Dioxide 27 mmol/L (22-32); Chloride 102 mmol/L (98-107); Estimated Glomerular Filt Rate > 60 mL/min (>60); Globulin 2.7 g/dL (1.7-4.1); Glucose 96 mg/dL (70-100); HEMOLYSIS < 15 (0-50); Potassium 4.3 mmol/L (3.4-5.1); Sodium 136 mmol/L (137-145)
[2022-09-08 14:27] LABS: Ferritin 4 ng/mL (6-137)
[2022-09-09 10:27] LABS: Rubeola Measles IgG > 300.0 AU/mL (Immune >16.4)
[2022-09-10 12:36] LABS: Mumps Virus IgG Antibody 64.2 AU/mL (Immune >10.9)
[2022-09-10 16:09] LABS: Rubella Antibody IgG 50.7 IU/mL (>15)
== END ==
PROVIDERS: PCP Physician Assistant; Referring Provider Physician Assistant; Visit Provider Physician Assistant
DX: Z01.84 Encounter for antibody response examination (principal); Z00.00 Encounter for general adult medical examination without abnormal findings; G47.411 Narcolepsy with cataplexy; G25.81 Restless legs syndrome
CPT/HCPCS: 36415; 80053; 82728; 83540; 83550; 85025; 86735; 86762; 86765